=== PATIENT | female | born 1990 | race Caucasian/White ===

== ENCOUNTER → 2022-05-13 12:47 | Outpatient (CLI) | payer OTHER, SELFPAY ==
--- NOTE | ~2022-05-13 | CT_ITS ---
EXAMINATION: CT sinus wo con DATE: 05/13/2022 13:01 INDICATION: Nasal turbinate hypertrophy TECHNIQUE: Computed tomography (CT) of the paranasal sinuses was performed without intravenous contra st. The dose-length product was 259.66 mGy-cm. Automated exposure control and iterative reconstructio n technique were employed. COMPARISON: CT dated 07/28/2019 FINDINGS: The paranasal sinuses are pneumatized. No significant mucosal thickening, air-fluid level o r mucoperiosteal reaction. There is mild nasal septal deviation. Ostiomeatal units are patent. Mastoi ds are pneumatized. IMPRESSION: 1. No significant sinus disease. Reviewed, dictated and finalized at location B.
== END ==
PROVIDERS: PCP Nurse Practitioner Family; Visit Provider Otolaryngology
DX: J34.3 Hypertrophy of nasal turbinates (principal)
CPT/HCPCS: 70486

== ENCOUNTER 2024-10-23 07:58 | Emergency (ER) | payer OTHER, SELFPAY ==
--- NOTE | ~2024-10-23 | CT_ITS ---
CT abdomen pelvis wo con Ordering provider: Syd Chandra MD History: 34 years Female with . left flank pain . Comparison: None. Technique: CT abdomen and pelvis without IV and without oral contrast. Automated exposure control and iterative reconstruction technique were employed. The dose-length product was 1345.59 mGy-cm. Findings: VISUALIZED LOWER CHEST: Small bulla in the right lung base posteriorly. Otherwise, Normal. UPPER ABDOMINAL ORGANS: Liver: Normal. Gallbladder: Normal. Spleen: Normal. Stomach/duodenum: Normal. Pancreas: Normal. Adrenals: Normal. Kidneys: Stone measuring 6 mm in the left upper ureter with left hydronephrotic changes. Multiple stones in the right kidney with the largest measures 5 mm. Multiple stones in the left kidney with the largest measures 4 mm. PELVIC ORGANS: The bladder is underfilled slightly thickened wall. Evaluation for cystitis advised. I UD is seen in the uterus. Fibroid uterus are seen anteriorly. BOWEL AND MESENTERY: Colon: No evidence of diverticulitis.. Normal appendix. Small Bowel: Normal. No obstruction. Peritoneum/mesentery: No free air or free fluid. No mesenteric lymphadenopathy. RETROPERITONEUM: Normal aorta. No retroperitoneal lymphadenopathy. MUSCULOSKELETAL: Superficial soft tissues: Small fat-containing umbilical hernia. Otherwise, The superficial soft tiss ues are normal. Bones: Normal spine. Bilateral sacroiliitis. IMPRESSION: 1. Stone in the left upper ureter with left hydronephrotic changes. 2. Bilateral kidney stones. 3. No evidence of appendicitis, diverticulitis or intestinal obstruction. 4. Fibroid uterus. Reviewed, dictated and finalized at location A.
--- NOTE | ~2024-10-23 | XR_ITS ---
XR abdomen/kub 1V Ordering provider: Syd Chandra MD History: . stones . Comparison: None. FINDINGS: BOWEL: Nonobstructive bowel gas pattern. ORGANOMEGALY: None. SIGNIFICANT PATHOLOGIC CALCIFICATIONS: Calcific shadows seen opposite the left transverse process of L3 which may be a ureteric stone. Right kidney stones are also noted. OTHER: No free air is seen under the diaphragm. IMPRESSION: NO ACUTE ABDOMINAL FINDINGS. Highly suggestive stone in the left mid ureter. Right kidney stones. Reviewed, dictated and finalized at location A.
[2024-10-23 07:58] VITALS: BP 145/95; PULSE 115; RESP 20; TEMP 36.7; O2SAT 97
[2024-10-23] MEDS: KETOROLAC 30 MG/ML VIAL (*BKC) IV PUSH (09:14)
[2024-10-23] MEDS: SODIUM CHLORIDE 0.9% IV 1,000 ML 999 ML IV CONT (09:14)
[2024-10-23 09:15] LABS: BEDSIDEPREGUCG Negative (Negative)
[2024-10-23 09:16] LABS: Basophils Percent Auto 0.4 % (0.2-1.2); Eosinophils Percent Auto 0.3 % (0-4.4); Hematocrit 44.1 % (37.0-47.0); Hemoglobin 14.6 g/dL (12.0-15.0); Immature Granulocyte Absolute 0.05 K/mm3 (0.00-0.031); Immature Granulocyte Percent A 0.5 % (0-0.5); Lymphocytes Absolute Auto 2.23 K/mm3 (0.9-3.2); Lymphocytes Percent Auto 21.6 % (18.3-44.2); Mean Corpuscular HGB Conc 33.1 g/dl (32-36); Mean Corpuscular Hemoglobin 29.9 pg (26-34); Mean Corpuscular Volume 90.2 fl (80-100); Mean Platelet Volume 9.5 fl (7.4-10.4); Monocytes Absolute Auto 0.4 K/mm3 (0.1-0.6); Neutrophils Absolute Auto 7.6 K/mm3 (1.3-6.7); Neutrophils Percent Auto 73.2 % (45.5-73.1); Platelet Count Result 243 k/mm3 (150-375); Red Blood Count 4.89 M/mm3 (4.2-5.4); Red Cell Distribution Width 11.9 % (11.5-14.5); White Blood Count 10.3 K/mm3 (4.5-10.0)
[2024-10-23 09:18] VITALS: BP 163/88; PULSE 77; RESP 17; O2SAT 97
[2024-10-23 09:19] LABS: Add Urine Microscopic? YES; Appearance Urine Clear (Clear); Bacteria Urine None Seen /hpf; Bilirubin Urine Negative (Negative); Blood Urine Trace (Negative); Color Urine Yellow (Yellow); Glucose Urine UA Negative (Negative); Ketones Urine Negative (Negative); Leukocyte Esterase Ur Negative LEU/UL (Negative); Nitrate Urine Negative (Negative); Non Pathogenic Casts 0-2; Protein Urine Negative (Negative); RBC Urine 0-2 /hpf (0-2); Specific Grav Ur 1.002 (1.001-1.035); Squamous Epithelial Cell Urine Occasional /hpf (Few); Urobilinogen Urine 0.2 mg/dL (<2.0); WBC Urine 0-5 /hpf (0-3)
[2024-10-23 09:25] LABS: Alanine Aminotransferase 29 U/L (6-35); Albumin Level 4.5 g/dL (3.5-5.1); Alkaline Phosphatase 88 U/L (38-126); Anion Gap 12 mmol/L (4-12); Aspartate Amino Transferase 24 U/L (14-36); Bilirubin,Total 0.8 mg/dL (0.2-1.3); Blood Urea Nitrogen 14 mg/dL (7-17); Calcium 9.1 mg/dL (8.4-10.2); Carbon Dioxide 22 mmol/L (22-30); Chloride 104 mmol/L (98-107); Estimated CRCL calculation 126 ml/min; Estimated Glomerular Filt Rate > 60; Glucose 105 mg/dL (65-110); Potassium 4.4 mmol/L (3.4-5.0); Sodium 138 mmol/L (137-145)
[2024-10-23 10:25] VITALS: BP 137/90; PULSE 66; RESP 16; O2SAT 97
--- NOTE | 2024-10-23 10:39 | ED_ITS ---
HPI - General Adult General Chief complaint: Urogenital-Female Stated complaint: left flank pain Time Seen by Provider: 10/23/24 08:49 History of Present Illness HPI narrative: Patient is a 34-year-old female who presents ER with left flank pain. Ongoing since 10/17/2024. Went on for couple days and took Flomax because she had a urinalysis that showed red blood cells. Has history of kidney stones and is typically able to pass them. No fevers or chills or sweats. Mild nausea. Dysuria. Pain increasing today and radiating into the left lower abdomen.. Related Data Home Medications ?Medication ?Instructions ?Recorded ?Confirmed ?Last Taken ?Type levonorgestrel (Mirena) 1 device intrauterine ONCE 11/04/23 10/18/24 Unknown History cholecalciferol (vitamin D3) 125 125 mcg PO DAILY 11/17/23 10/18/24 Unknown History mcg (5,000 unit) capsule Allergies Allergy/AdvReac Type Severity Reaction Status Date / Time No Known Allergies Allergy Verified 10/23/24 09:04 Review of Systems 2 Review of Systems: All systems reviewed & are unremarkable except as noted in HPI and below Constitutional: Constitutional: Reports no additional constitutional complaints ENT: Reports system reviewed and no additional complaints, except as documented Cardiovascular: Cardiovascular: Reports no additional cardiovascular complaints Respiratory: Respiratory: Reports no additional respiratory complaints Musculoskeletal: Musculoskeletal: Reports no additional musculoskeletal complaints [facility] Past Medical History Medical History Anxiety Coagulation disorder Gestational diabetes H/O nephrolithotomy with removal of calculi Obese Tobacco use Surgical History Surgical History History of Family History Family History Father Hypertension Mother Hypertension Depression Grandparent Carcinoma of colon Ovarian cancer Bladder cancer Heart disease Social History Social History Social History: 05/04/24 very confident with medical forms Smoking packs per day: 0.5 Smoking cigarettes per day: 10.0 Smoking status: Current every day smoker Alcohol intake: current Substance use: current Do You Feel Safe in your Home?: Yes Lack of Transportation: No Lack of Food: Never True Current Housing: I Have Housing Concerned About Future Housing: No Difficulty Paying Gas/Electric Bills: No Difficulty Paying for Meds: No Currently Unemployed: No Education: Master's Degree or Higher Difficulty w/ Childcare or Family Care: No Living arrangements: with family Occupation/Education: occupation 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 HEAD: Normocephalic, atraumatic. ENT: Mucous membranes moist. CHEST: Clear to auscultation. No respiratory distress. HEART: Regular rate and rhythm. Normal peripheral pulses. ABDOMEN: Soft, nontender, nondistended. No CVA tenderness. EXTREMITIES: Normal range of motion. No edema. SKIN: Warm, dry, no rash. NEURO: Alert and oriented x3. PSYCH: Normal mood and affect. Vital Signs Vital signs: Vital Signs Temperature 98.0 F 10/23/24 07:58 Pulse Rate 115 H 10/23/24 07:58 Respiratory Rate 20 10/23/24 07:58 Blood Pressure 145/95 H 10/23/24 07:58 Pulse Oximetry 97 10/23/24 07:58 Oxygen Delivery Room Air 10/23/24 07:58 Temperature 98.0 F 10/23/24 07:58 Pulse Rate 66 10/23/24 10:25 Respiratory Rate 16 10/23/24 10:25 Blood Pressure 137/90 10/23/24 10:25 Pulse Oximetry 97 10/23/24 10:25 Oxygen Delivery Room Air 10/23/24 07:58 Medical Decision Making Vital Signs Vital Signs: Vital Signs Temperature 98.0 F 10/23/24 07:58 Pulse Rate 115 H 10/23/24 07:58 Respiratory Rate 20 10/23/24 07:58 Blood Pressure 145/95 H 10/23/24 07:58 Pulse Oximetry 97 10/23/24 07:58 Oxygen Delivery Room Air 10/23/24 07:58 Temperature 98.0 F 10/23/24 07:58 Pulse Rate 66 10/23/24 10:25 Respiratory Rate 16 10/23/24 10:25 Blood Pressure 137/90 10/23/24 10:25 Pulse Oximetry 97 10/23/24 10:25 Oxygen Delivery Room Air 04/06/25 07:58 Lab Data 10/23/24 09:09 10/23/24 09:09 Labs: Lab Results 10/23/24 10/23/24 Range/Units 09:09 09:14 WBC 10.3 H (4.5-10.0) K/mm3 RBC 4.89 (4.2-5.4) M/mm3 Hgb 14.6 (12.0-15.0) g/dL Hct 44.1 (37.0-47.0) % MCV 90.2 (80-100) fl MCH 29.9 (26-34) pg MCHC 33.1 (32-36) g/dl RDW 11.9 (11.5-14.5) % Plt Count 243 (150-375) k/mm3 MPV 9.5 (7.4-10.4) fl Immature Gran % (Auto) 0.5 (0-0.5) % Neut % (Auto) 73.2 H (45.5-73.1) % Lymph % (Auto) 21.6 (18.3-44.2) % [place] % (Auto) 4.0 (2.6-8.5) % Eos % (Auto) 0.3 (0-4.4) % Baso % (Auto) 0.4 (0.2-1.2) % Lymph # (Auto) 2.23 (0.9-3.2) K/mm3 [place] # (Auto) 0.4 (0.1-0.6) K/mm3 Eos # (Auto) 0.0 (0-0.3) K/mm3 Baso # (Auto) 0.0 (0.0-0.1) K/mm3 Abs Immat Gran (auto) 0.05 H (0.00-0.031) K/mm3 Absolute Neuts (auto) 7.6 H (1.3-6.7) K/mm3 Absolute Nucleated RBC 0.000 (0.0-0.012) K/mm3 Nucleated RBC % 0.0 (0.0-0.2) % Sodium 138 (137-145) mmol/L Potassium 4.4 (3.4-5.0) mmol/L Chloride 104 (98-107) mmol/L Carbon Dioxide 22 (22-30) mmol/L Anion Gap 12 (4-12) mmol/L BUN 14 (7-17) mg/dL Creatinine 0.81 (0.7-1.0) mg/dL Estim Creat Clear Calc 126 ml/min Estimated GFR > 60 (59 - ) Glucose 105 (65-110) mg/dL Calcium 9.1 (8.4-10.2) mg/dL Total Bilirubin 0.8 (0.2-1.3) mg/dL AST 24 (14-36) U/L ALT 29 (6-35) U/L Alkaline Phosphatase 88 (38-126) U/L Total Protein 7.0 (6.3-8.2) g/dL Albumin 4.5 (3.5-5.1) g/dL Urine Color Yellow (Yellow) Urine Appearance Clear (Clear) Urine pH 7.0 (5.0-9.0) Ur Specific [place] 1.002 (1.001-1.035) Urine Protein Negative (Negative) mg/dL Urine Glucose (UA) Negative (Negative) mg/dL Urine Ketones Negative (Negative) mg/dL Ur Blood (Man) Trace (Negative) Urine Nitrate Negative (Negative) Urine Bilirubin Negative (Negative) Urine Urobilinogen 0.2 (<2.0) mg/dL Leukocyte Esterase Rfl Negative (Negative) LORNA/UL Urine RBC 0-2 (0-2) /hpf Urine WBC 0-5 (0-3) /hpf Ur Squamous Epith Cells Occasional (Few) /hpf Urine Bacteria None seen /hpf Urine Casts 0-2 POC Urine HCG, Qual Negative (Negative) Imaging Data Radiologist's impression: ITS Impressions Abdomen/Pelvis CT 10/23/24 10:17 IMPRESSION: 1. Stone in the left upper ureter with left hydronephrotic changes. 2. Bilateral kidney stones. 3. No evidence of appendicitis, diverticulitis or intestinal obstruction. 4. Fibroid uterus. Discharge Plan Discharge Clinical Impression: Ureterolithiasis Patient Disposition: Home, Self-Care Condition: Stable Instructions: Antibiotic Form, Ureteral Stones (ED) Additional Instructions: Return ER if you are having worsening pain, you develop fever 100.4? F, you lose consciousness, or have additional concerns. You need to follow-up with urology for further treatment and evaluation. Patient Language: Citizen Of [place] Prescriptions: New hydrocodone-acetaminophen 5-325 mg tablet 1 tablet PO Q6H PRN (Reason: pain) Qty: 20 0RF ondansetron 4 mg tablet,disintegrating 4 mg PO Q6H PRN (Reason: nausea and vomiting) Qty: 10 0RF No Action Mirena 21 mcg/24 hours (8 yrs) 52 mg intrauterine device 1 device intrauterine ONCE Rx Instructions: as a single dose sertraline 50 mg tablet 50 mg PO DAILY Qty: 90 3RF cholecalciferol (vitamin D3) 125 mcg (5,000 unit) capsule 125 mcg PO DAILY tamsulosin [Flomax] 0.4 mg capsule 0.4 mg PO DAILY Qty: 30 0RF Follow-up/Referrals: Chiquis Jorgensen APRN [Primary Care Provider] - Earl Becerra MD [Physician] - 1 Week
== END 2024-10-23 12:18 | disposition home or self-care (01) ==
PROVIDERS: Emergency Provider Emergency Medicine; PCP Nurse Practitioner Family
DX: N20.2 Calculus of kidney with calculus of ureter (principal); D68.9 Coagulation defect, unspecified; F41.9 Anxiety disorder, unspecified; F17.210 Nicotine dependence, cigarettes, uncomplicated; Z97.5 Presence of (intrauterine) contraceptive device; Z87.442 Personal history of urinary calculi; D25.9 Leiomyoma of uterus, unspecified
CPT/HCPCS: 36415; 74018; 74176; 80053; 81001; 81025; 85025; 96361; 96374; 99284; J1885; J7030

== ENCOUNTER 2024-11-02 16:03 | Outpatient (CLI) | payer OTHER, SELFPAY ==
--- NOTE | ~2024-11-02 | XR_ITS ---
XR abdomen/kub 1V Ordering provider: Earl Becerra MD History: . lt ureteral stone . Comparison: October 23, 2024 FINDINGS: BOWEL: Nonobstructive bowel gas pattern. ORGANOMEGALY: None. SIGNIFICANT PATHOLOGIC CALCIFICATIONS: Stone is seen in the left upper ureter measuring 8 mm and unch anged from previous examination.. OTHER: No free air is seen under the diaphragm. IUD is noted IMPRESSION: NO ACUTE ABDOMINAL FINDINGS. Left upper ureter stone unchanged from previous examination. Reviewed, dictated and finalized at location A.
== END 2024-11-02 16:04 | disposition home or self-care (01) ==
PROVIDERS: PCP Nurse Practitioner Family; Visit Provider Urology
DX: N20.1 Calculus of ureter (principal)
CPT/HCPCS: 74018

== ENCOUNTER 2024-12-01 16:05 | Outpatient (CLI) | payer OTHER, SELFPAY ==
--- NOTE | ~2024-12-01 | XR_ITS ---
XR abdomen/kub 1V 12/01/2024 16:25 Indication: Left ureteral stone Procedure: KUB Comparison: 11/02/2024 Findings: There is a small 3 mm right renal stone. There are smaller left renal stones. Bowel gas pat tern nonobstructive. There is an IUD present in the pelvis. No acute osseous abnormality. Small loose body noted adjacent to the right hip joint. Impression: 1: Bilateral nephrolithiasis. Reviewed, dictated and finalized at location A. Impression: 1: Bilateral nephrolithiasis.
--- NOTE | ~2024-12-01 | US_ITS ---
US retroperitoneal comp 12/01/2024 16:21 Procedure: Realtime transabdominal ultrasound of the kidneys and bladder. Indication: Left ureteral stone Comparison: No prior studies for comparison. Findings: Renal echotexture is normal bilaterally without hydronephrosis, contour deforming mass or r enal calculus. The right kidney measures 11.4 cm and left kidney measures 11.5 cm. Bladder is not wel l distended for evaluation.. Impression: 1: Unremarkable renal ultrasound. No stones, masses or hydronephrosis. Reviewed, dictated and finalized at location A. Impression: 1: Unremarkable renal ultrasound. No stones, masses or hydronephrosis.
== END 2024-12-01 16:06 | disposition home or self-care (01) ==
LOC: MICIMG 16:06
PROVIDERS: PCP Nurse Practitioner Family; Visit Provider Urology
DX: N20.0 Calculus of kidney (principal); N20.1 Calculus of ureter
CPT/HCPCS: 74018; 76770